=== PATIENT | female | born 1945 | race Caucasian/White ===

== ENCOUNTER → 2017-01-20 | Outpatient (CLI) | payer MEDICARE ==
[~2017-01-20] MED LIST: CARVEDILOL3.125 MG PO; KEFLEX500 MG PO; PREMARIN0.625 MG PO; PRILOSEC40 MG PO; RAMIPRIL5 MG PO; SYNTHROID,LEVO88 MCG PO; ZOCOR40 MG PO
== END | disposition home or self-care (01) ==
LOC: CT 01:26
DX: R91.1 Solitary pulmonary nodule (principal); I25.10 Atherosclerotic heart disease of native coronary artery without angina pectoris; I10 Essential (primary) hypertension; Z95.1 Presence of aortocoronary bypass graft

== ENCOUNTER → 2018-01-28 | Outpatient (CLI) | payer MEDICARE | END | disposition home or self-care (01) | LOC: MRI 03:50 | DX: I67.82 Cerebral ischemia (principal); K21.9 Gastro-esophageal reflux disease without esophagitis ==

== ENCOUNTER 2021-04-17 15:04 | Emergency (ER) | payer MEDICARE ==
[~2021-04-17] VITALS: Wt 61.7 kg
[2021-04-17 15:35] LABS: BASO % 0.6 % (0.0-1.0); EOS # 0.5 10*3/uL (0.0-0.4); EOS % 8.3 % (1.0-4.0); HEMATOCRIT 36.4 % (37.0-47.0); LYMPH # 3.4 10*3/uL (1.3-4.4); MEAN CELL VOLUME 101.7 fl (81.0-99.0); MEAN CORPUSCULAR HGB 29.1 pg (27.0-31.0); MEAN CORPUSCULAR HGB CONC 28.6 g/dl (33.0-37.0); MEAN PLATELET VOLUME 10.2 fl (9.6-12.3); MONO # 0.3 10*3/uL (0.1-1.0); MONO % 4.9 % (3.0-9.0); NEUT # 1.9 10*3/uL (2.3-7.9); NEUT % 30.6 % (47.0-73.0); PLATELET COUNT AUTOMATED 152 10*3/uL (130-400); RED BLOOD COUNT 3.58 10*6/uL (4.10-5.10); RED CELL DISTRI WIDTH 12.2 % (0-14.5); WHITE BLOOD COUNT 6.3 10*3/uL (4.8-10.8)
[2021-04-17 15:45] LABS: ACT PARTIAL THROMBO TIME 37.9 SECONDS (20.0-32.1); INTERNATIONAL NORM RATIO 1.2 (2.0-3.5)
[2021-04-17 16:07] LABS: ALBUMIN 2.4 gm/dl (3.1-4.5); ALKALINE PHOSPHATASE 137 U/L (45-117); BUN 17 mg/dl (7-24); CHLORIDE 109 mmol/L (98-107); CREATININE 1.21 mg/dL (0.55-1.02); LIPASE 273 U/L (73-393); POTASSIUM 3.7 mmol/L (3.5-5.1); SGOT/AST 100 IU/L (3-35); SGPT/ALT 53 U/L (12-78); SODIUM 145 mmol/L (136-145); TOTAL PROTEIN 5.5 gm/dL (6.4-8.2)
== END 2021-04-17 15:40 ==
LOC: ED 15:04
PROVIDERS: Emergency Medicine
DX: I46.9 Cardiac arrest, cause unspecified (principal); Z79.899 Other long term (current) drug therapy